=== PATIENT | male | born 1995 | race Caucasian/White ===

== ENCOUNTER 2018-08-27 12:27 | Emergency (ER) | payer SELFPAY ==
[~2018-08-27] VITALS: Ht 190.5 cm; Wt 72.6 kg
[2018-08-27 12:33] VITALS: BP_SYST 124
[2018-08-27] MEDS ORDERED: cefTRIAXone 1 GM in LIDOCAINE 1%, 20 ML MDV 2.1 ML IM ONE (14:15)
[2018-08-27] MEDS ORDERED: KETOROLAC TROMETHAMINE 60 MG/2 ML VIAL IM ONE (14:15)
[2018-08-27 14:35] VITALS: BP_SYST 120
== END 2018-08-27 14:35 | disposition home or self-care (01) ==
LOC: SED 12:27
DX: K08.89 Other specified disorders of teeth and supporting structures (principal); F17.210 Nicotine dependence, cigarettes, uncomplicated; R03.0 Elevated blood-pressure reading, without diagnosis of hypertension; Z71.6 Tobacco abuse counseling
CPT/HCPCS: 96372; 99283; J0696; J1885; J2001

== ENCOUNTER 2019-12-18 12:21 | Emergency (ER) | payer MEDICAID ==
[~2019-12-18] VITALS: Ht 190.5 cm; Wt 70.3 kg
[2019-12-18 12:41] VITALS: BP_SYST 140
--- NOTE | 2019-12-18 12:41 | NUR ---
Patient to ER bed 04 to gown for evaluation. Side rails up.
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
--- NOTE | 2019-12-18 12:57 | NUR ---
ER at bedside examining patient.
[2019-12-18] MEDS ORDERED: LIDOCAINE 1% 10 MG/ML, 20 ML MDV INJ ONE (13:00)
--- NOTE | 2019-12-18 13:30 | NUR ---
Dr. Mcgregor at the bedside suturing pt's lac.
--- NOTE | 2019-12-18 13:46 | NUR ---
Patient given written and verbal discharge instructions and verbalizes understanding. ER MD discussed with patient the results and treatment provided. Patient in stable condition. ID arm band removed. Patient educated on pain management and to follow up with PMD. Pain Scale 0/10. Opportunity for questions provided and answered. Medication side effect fact sheet provided.
[2019-12-18 13:47] VITALS: BP_SYST 140
== END 2019-12-18 13:47 | disposition home or self-care (01) ==
LOC: SED 12:21
DX: S61.412A Laceration without foreign body of left hand, initial encounter (principal); W25.XXXA Contact with sharp glass, initial encounter; Y93.89 Activity, other specified; Y92.89 Other specified places as the place of occurrence of the external cause; Y99.8 Other external cause status
CPT/HCPCS: 12002; 99282; J2001